=== PATIENT | female | born 1985 | race Caucasian/White ===

== ENCOUNTER 2018-10-31 10:32 | Emergency (ER) | payer OTHER ==
[2018-10-31 10:45] VITALS: BP 115/82; PULSE 86; TEMP 98; BMI 25.8
[2018-10-31] MEDS ORDERED: diphenhydrAMINE HCL 50 MG CAPSULE PO ONE (13:09)
[2018-10-31] MEDS ORDERED: diphenhydrAMINE HCL 25 MG CAPSULE (FP) PO ONE (13:13)
--- NOTE | 2018-10-31 13:13 | PDOC ---
History of Present Illness - General Chief Complaint: Rash Stated Complaint: RASH Time Seen by Provider: 10/31/18 11:02 History Source: Patient Exam Limitations: Language Barrier ([employer] used) Past History - Travel Traveled outside of the country in the last 30 days: No Close contact w/someone who was outside of country & ill: No - Past Medical History Allergies/Adverse Reactions: Allergies Allergy/AdvReac Type Severity Reaction Status Date / Time No Known Allergies Allergy Verified 10/31/18 10:42 Home Medications: Ambulatory Orders Diphenhydramine HCl [Benadryl -] 25 mg PO Q8H #21 capsule 10/31/18 Methylprednisolone [Medrol Dose Nacho] 4 mg PO ASDIR #21 tablet 10/31/18 Permethrin 5% Topical Cream [Elimite -] 1 applic TP ONCE #1 tube 10/31/18 COPD: No - Immunization History Immunization Up to Date: Yes - Suicide/Smoking/Psychosocial Hx Smoking History: Never smoked Hx Alcohol Use: No Drug/Substance Use Hx: No Review of Systems - Review of Systems Able to Perform ROS?: Yes Comments:: 10/31/18 19:51 CONSTITUTIONAL: Absent: fever, chills, diaphoresis, generalized weakness, malaise, loss of appetite HEENT: Absent: rhinorrhea, nasal congestion, throat pain, throat swelling, difficulty swallowing, mouth swelling, ear pain, eye pain, visual Changes CARDIOVASCULAR: Absent: chest pain, loss of consciousness, palpitations, irregular heart rate, peripheral edema RESPIRATORY: Absent: cough, shortness of breath, dyspnea with exertion, orthopnea, wheezing, stridor, hemoptysis GASTROINTESTINAL: Absent: abdominal pain, abdominal distension, nausea, vomiting, diarrhea, constipation, melena, hematochezia GENITOURINARY: Absent: dysuria, frequency, urgency, hesitancy, hematuria, flank pain, genital pain MUSCULOSKELETAL: Absent: myalgia, arthralgia, joint swelling SKIN: Absent: rash, itching, pallor HEMATOLOGIC/IMMUNOLOGIC: Absent: easy bleeding, easy bruising, lymphadenopathy, frequent infections ENDOCRINE: Absent: unexplained weight gain, unexplained weight loss, heat intolerance, cold intolerance NEUROLOGIC: Absent: headache, focal weakness or paresthesias, dizziness, unsteady gait, seizure, mental status changes, bladder or bowel incontinence PSYCHIATRIC: Absent: anxiety, depression, suicidal or homicidal ideation, hallucinations. Is the patient limited Slovak proficient: No *Physical Exam - Vital Signs Last Vital Signs Temp Pulse Resp BP Pulse Ox 98.0 F 86 18 115/82 99 10/31/18 10:42 10/31/18 10:42 10/31/18 10:42 10/31/18 10:42 10/31/18 10:42 - Physical Exam Comments: 10/31/18 19:51 GENERAL: Well developed, well nourished. Awake and alert. No acute distress. HEENT: Normocephalic, atraumatic. PERRLA, EOMI. No conjunctival pallor. Sclera are non- icteric. Moist mucous membranes. Oropharynx is clear. NECK: Supple. Full ROM. No JVD. Carotid pulses 2+ and symmetric, without bruits. No thyromegaly. No lymphadenopathy. CARDIOVASCULAR: Regular rate and rhythm. No murmurs, rubs, or gallops. Distal pulses are 2+ and symmetric. PULMONARY: No evidence of respiratory distress. Lungs clear to auscultation bilaterally. No wheezing, rales or rhonchi. ABDOMINAL: Soft. Non-tender. Non-distended. No rebound or guarding. No organomegaly. Normoactive bowel sounds. MUSCULOSKELETAL Normal range of motion at all joints. No bony deformities or tenderness. No CVA tenderness. EXTREMITIES: No cyanosis. No clubbing. No edema. No calf tenderness. SKIN: Warm and dry. Normal capillary refill. No rashes. No jaundice. NEUROLOGICAL: Alert, awake, appropriate. Cranial nerves 2-12 intact. No deficits to light touch and temperature in face, upper extremities and lower extremities. No motor deficits in the in face, upper extremities and lower extremities. Normoreflexic in the upper and lower extremities. Normal speech. Toes are down- going bilaterally. Gait is normal without ataxia. PSYCHIATRIC: Cooperative. Good eye contact. Appropriate mood and affect. Moderate Sedation - Procedure Monitoring Vital Signs: Procedure Monitoring Vital Signs Temperature 98.0 F 10/31/18 10:42 Pulse Rate 86 10/31/18 10:42 Respiratory Rate 18 10/31/18 10:42 Blood Pressure 115/82 10/31/18 10:42 O2 Sat by Pulse Oximetry (%) 99 10/31/18 10:42 *DC/Admit/Observation/Transfer Diagnosis at time of Disposition: Rash - Discharge Dispostion Disposition: HOME Condition at time of disposition: Stable Decision to Admit order: No - Prescriptions Prescriptions: Diphenhydramine HCl [Benadryl -] 25 mg PO Q8H #21 capsule Methylprednisolone [Medrol Dose Nacho] 4 mg PO ASDIR #21 tablet Permethrin 5% Topical Cream [Elimite -] 1 applic TP ONCE #1 tube - Referrals Referrals: Nubia Sotelo MD [Staff Physician] - - Patient Instructions Printed Discharge Instructions: DI for Rash Additional Instructions: You have a rash. Please use the permethrin cream once. He put it on your entire body and let it sit for 6 hours. Any wash it off. He may take Benadryl 25 mg every 8 hours as needed for itching. Do not drive or drink alcohol after this medication as it will make you sleepy. He may start taking this medication tonight before you go to bed. Take the Medrol Dosepak as prescribed. This will also help with the rash. Please follow up with dermatology. A referral has been provided for you. Return to emergency department if he develops worsening rash despite treatment, fevers, signs of infection including redness or pus or if you have any changes in your symptoms. Usted tiene rebekah erupcin Por favor, use la crema de permetrina rebekah vez. Se lo puso en todo el cuerpo y lo frank reposar joesph 6 horas. Cualquier lavarlo. l puede lala Benadryl 25 mg cada 8 horas segn sea necesario para la picazn. No conduzca ni keisha alcohol despus de kay medicamento, ya que le rob sueo. l puede comenzar a lala kay medicamento esta noche antes de irse a la cama. Ozora el Medrol Dosepak segn lo prescrito. [place] tambin ayudar con la erupcin. Por favor, siga con la dermatologa. Se cary proporcionado rebekah referencia para usted. Regrese a la pippa de emergencias si desarrolla rebekah erupcin que empeora a pesar del tratamiento, las fiebres, los signos de infeccin, tavon enrojecimiento o pus , o si tiene algn cambio en kareem sntomas. Print Language: ITALIAN - Post Discharge Activity
== END 2018-10-31 13:25 | disposition home or self-care (01) ==
LOC: JERFT 10:32
DX: R21 Rash and other nonspecific skin eruption (principal)
CPT/HCPCS: 99281-25